=== PATIENT | male | born 1945 | race Caucasian/White ===

== ENCOUNTER 2017-05-19 20:19 | Observation (INO) | payer MEDICARE ==
[2017-05-19 21:43] VITALS: BMI 22.4
[2017-05-19 22:23] LABS: BASO % 0.2 % (0.0-2.0); EOS % 0.2 % (0.0-4.0); HEMOGLOBIN 15.3 g/dL (12.0-18.0); LYMPH % 5.7 % (20.0-40.0); MEAN CELL VOLUME 84.4 fl (80.0-94.0); MEAN CORPUSCULAR HGB CONC 33.1 g/dL (33.0-37.0); MONO # 1.2 K/uL (0.0-0.8); NEUT # 15.4 K/uL (1.8-7.0); NEUT % 86.9 % (50.0-75.0); NRBC % 0.1 % (0.0-0.0); PLATELET COUNT 232 K/uL (130-400); RBC 5.46 Mil/uL (4.40-5.90); RED CELL DISTRIBUTION WIDTH 14.7 % (11.5-14.5); WHITE BLOOD COUNT 17.8 K/uL (4.8-10.8)
[2017-05-19 22:31] LABS: ALB/GLOB RATIO 1.3 (1.0-2.1); ALBUMIN 4.3 g/dL (3.5-5.0); ALT/SGPT 42 U/L (21-72); AST/SGOT 34 U/L (17-59); BLOOD UREA NITROGEN 21 mg/dl (9-20); CALCIUM 9.6 mg/dL (8.4-10.2); GFR AFRICAN-AMERICAN > 60; GFR NON-AFRICAN AMERICAN 60
[2017-05-19 22:55] LABS: EOSINOPHIL 1 % (0-7); LYMPHOCYTE 10 % (20-50); MONOCYTE 6 % (0-10); NEUTROPHIL 83 % (42-75); PLATELET ESTIMATE NORMAL (NORMAL); TOTAL CELLS COUNTED 100
--- NOTE | 2017-05-19 22:58 | ED PDOC ---
"HPI: Abdomen Time Seen by Provider: 05/19/17 21:33 Chief Complaint (Nursing): Abdominal Pain Chief Complaint (Provider): abd pain, constipation History Per: Patient, Family (sister) History/Exam Limitations: no limitations Onset/Duration Of Symptoms: Days (1), Sudden Onset Current Symptoms Are (Timing): Still Present Location Of Pain/Discomfort: Periumbilical Quality Of Discomfort: Sharp Associated Symptoms: Nausea, Constipation. denies: Vomiting, Diarrhea, Urinary Symptoms Exacerbating Factors: None Alleviating Factors: None Last Bowel Movement: Today Additional Complaint(s): 71yo male c/o central abdominal pain and constipation which is abnormal for him , denies vomiting although notes nausea. Denies fever, urinary symptoms or weakness. No prior abd surgical history. Also notes painful hemorrhoid, no blood in stool. Past Medical History Reviewed: Historical Data, Nursing Documentation, Vital Signs Vital Signs: Last Vital Signs Temp 98.1 F 05/20/17 05:34 Pulse 94 H 05/20/17 05:34 Resp 16 05/20/17 05:34 BP 148/93 H 05/20/17 05:34 Pulse Ox 97 05/20/17 05:34 - Medical History PMH: CAD, Diabetes (preDM), HTN - Surgical History Surgical History: CABG - Family History Family History: States: Unknown Family Hx - Living Arrangements Living Arrangements: With Family (visiting from [place]) - Social History Current smoker - smoking cessation education provided: No - Home Medications Home Medications: Ambulatory Orders Medication Instructions Recorded Allopurinol [Zyloprim] 1 tab PO DAILY 05/20/17 Aspirin [Aspirin Chewable] 1 tab PO DAILY 05/20/17 Atorvastatin [Lipitor] 1 tab PO HS 05/20/17 Clopidogrel [Plavix] 1 tab PO DAILY 05/20/17 Lisinopril [Zestril] 1 tab PO DAILY 05/20/17 Metoprolol Tartrate [Lopressor] 100 mg PO BID 05/20/17 amLODIPine [Norvasc] 1 tab PO DAILY 05/20/17 - Allergies Allergies/Adverse Reactions: Allergies Allergy/AdvReac Type Severity Reaction Status Date / Time No Known Allergies Allergy Verified 05/19/17 21:43 Review of Systems Constitutional: Negative for: Weakness, Malaise ENT: Negative for: Throat Pain, Throat Swelling Cardiovascular: Negative for: Chest Pain, Palpitations Respiratory: Negative for: Cough, Shortness of Breath Gastrointestinal: Positive for: Nausea, Abdominal Pain, Constipation, Rectal Pain. Negative for: Vomiting, Diarrhea, Melena Genitourinary Male: Negative for: Dysuria, Hematuria Musculoskeletal: Negative for: Neck Pain, Shoulder Pain Skin: Negative for: Rash, Lesions Neurological: Negative for: Weakness, Numbness, Dizziness Psych: Negative for: Anxiety, Depression Physical Exam - Reviewed Nursing Documentation Reviewed: Yes Vital Signs Reviewed: Yes - Physical Exam Appears: Positive for: Well, Non-toxic, No Acute Distress Head Exam: Positive for: ATRAUMATIC, NORMAL INSPECTION, NORMOCEPHALIC Skin: Positive for: Normal Color, Warm, DRY Eye Exam: Positive for: EOMI, Normal appearance, PERRL ENT: Positive for: Normal ENT Inspection Neck: Positive for: Normal, Painless ROM Cardiovascular/Chest: Positive for: Regular Rate, Rhythm Respiratory: Positive for: CNT, Normal Breath Sounds Gastrointestinal/Abdominal: Positive for: Bowel Sounds, Soft, Tenderness, Distended. Negative for: Rebound, Hernia, Asicites Back: Positive for: Normal Inspection Extremity: Positive for: Normal ROM Neurologic/Psych: Positive for: Alert, Oriented - Laboratory Results Result Diagrams: 05/19/17 22:10 05/19/17 22:10 - ECG O2 Sat by Pulse Oximetry: 97 Medical Decision Making Medical Decision Making: workup for new onset constipation initiated Abd obstructive series, labwork ordered enema ordered but held after WBC returned elevated, will obtain CT abd pelv r/o obstruction FANG ABEBE | Final Radiology Report COMPARISON: There are no prior studies for comparison. FINDINGS: Lower thorax: Heart size is normal. There is minimal scarring at the lung bases. ABDOMEN: Liver: There is fatty infiltration of the liver. Gallbladder and bile ducts: Gallbladder is distended with a small calcified stone. Common duct is unremarkable. Pancreas: Pancreas is mildly atrophic. Spleen: unremarkable Adrenals: There is mild thickening of both adrenals. Kidneys and ureters: There is mild bilateral renal scarring. There are small low attenuation renal lesions too small to accurately characterize.There is no pelvocaliectasis or ureterectasis. Stomach and bowel: Stomach is almost empty. Rotation is normal. Small bowel is mildly distended with fluid and air. There is no obstruction. Ileocecal region is unremarkable. Appendix and terminal ileum are unremarkable.Colon is incompletely distended which limits evaluation. There is scattered diverticulosis Appendix: See stomach and bowel PELVIS: Bladder: unremarkable Reproductive: Seminal vesicles and prostate are unremarkable. ABDOMEN and PELVIS: Intraperitoneal space: There is no free air or free fluid. Bones/joints: There are postsurgical changes of median sternotomy There are degenerative changes in the osseus structures. There are bone islands in the sacrum. Soft tissues: unremarkable Vasculature: There are multiple phleboliths. There are vascular calcifications. Lymph nodes: There is no pathologic adenopathy. IMPRESSION: Fatty liver, no acute solid visceral abnormality; gallstone, no ductal dilatation; Thank you for allowing us to participate in the care of your patient. Dictated and Authenticated by: Stacey Espana MD 05/20/2017 12:55 AM Eastern Time ([place] & [place]) US RUQ FINDINGS: Liver: There is hepatopedal flow in the main portal vein. Hepatic texture is heterogeneous. Gallbladder: Gallbladder is distended. There are multiple shadowing stones. Gallbladder wall measures approximately 3 mm in width. Common bile duct: Common bile duct measures approximately 5 mm in diameter. Pancreas: Pancreas is partially obscured by bowel gas. Right kidney: Right kidney is unremarkable. Aorta: Visualized portions of the aorta and inferior vena cava are unremarkable. IMPRESSION: Gallstones and mild gallbladder wall thickening, no ductal dilatation; fatty liver Patient was not tender over the gallbladder Thank you for allowing us to participate in the care of your patient. Dictated and Authenticated by: Stacey Espana MD 05/20/2017 1:25 AM Eastern Time ([place] & [place]) Given elevated WBC, will give dose cipro and place observation to M/S for surg eval. d/w Dr Kati Perez surgery to be made aware vice president quality in ED with initial orders placed. Disposition - Clinical Impression Clinical Impression: Cholelithiases, Leukocytosis, Abdominal pain - Patient ED Disposition Is Patient to be Admitted: Yes Counseled Patient/Family Regarding: Studies Performed, Diagnosis, Need For Followup - Disposition Disposition Time: 01:40 Condition: STABLE - Pt Status Changed To: Hospital Disposition Of: Observation - POA Present On Arrival: None"
[2017-05-19] MEDS ORDERED: Iohexol 300 100 ML IJ ONE (23:02)
[2017-05-19] MEDS ORDERED: Sodium Chloride 0.9% 50 ML IV ONE (23:03)
--- NOTE | 2017-05-20 00:55 | CT ---
EXAM: CT Abdomen and Pelvis With Intravenous Contrast EXAM DATE/TIME: 05/19/2017 10:54 PM CLINICAL HISTORY: 71 years old, male; Pain; Abdominal pain; Generalized; Additional info: Abd pain constipation, elevated wbc TECHNIQUE: Axial computed tomography images of the abdomen and pelvis with intravenous contrast. All CT scans at this facility use one or more dose reduction techniques, viz.: automated exposure control; ma/kV adjustment per patient size (including targeted exams where dose is matched to indication; i.e. head); or iterative reconstruction technique. Coronal and sagittal reformatted images were created and reviewed. CONTRAST: 90 mL of [id number] administered intravenously. COMPARISON: There are no prior studies for comparison. FINDINGS: Lower thorax: Heart size is normal. There is minimal scarring at the lung bases. ABDOMEN: Liver: There is fatty infiltration of the liver. Gallbladder and bile ducts: Gallbladder is distended with a small calcified stone. Common duct is unremarkable. Pancreas: Pancreas is mildly atrophic. Spleen: unremarkable Adrenals: There is mild thickening of both adrenals. Kidneys and ureters: There is mild bilateral renal scarring. There are small low attenuation renal lesions too small to accurately characterize.There is no pelvocaliectasis or ureterectasis. Stomach and bowel: Stomach is almost empty. Rotation is normal. Small bowel is mildly distended with fluid and air. There is no obstruction. Ileocecal region is unremarkable. Appendix and terminal ileum are unremarkable.Colon is incompletely distended which limits evaluation. There is scattered diverticulosis Appendix: See stomach and bowel PELVIS: Bladder: unremarkable Reproductive: Seminal vesicles and prostate are unremarkable. ABDOMEN and PELVIS: Intraperitoneal space: There is no free air or free fluid. Bones/joints: There are postsurgical changes of median sternotomy There are degenerative changes in the osseus structures. There are bone islands in the sacrum. Soft tissues: unremarkable Vasculature: There are multiple phleboliths. There are vascular calcifications. Lymph nodes: There is no pathologic adenopathy. IMPRESSION: Fatty liver, no acute solid visceral abnormality; gallstone, no ductal dilatation;
--- NOTE | 2017-05-20 01:25 | US ---
EXAM: US Abdomen Limited, Right Upper Quadrant EXAM DATE/TIME: 05/20/2017 1:01 AM CLINICAL HISTORY: 71 years old, male; Pain; Abdominal pain; Epigastric; Additional info: Ruq distended gb TECHNIQUE: Real-time ultrasound of the right upper quadrant with image documentation. COMPARISON: CT - ABD PELVIS IV CONTRAST ONLY 2017-05-19 23:08 FINDINGS: Liver: There is hepatopedal flow in the main portal vein. Hepatic texture is heterogeneous. Gallbladder: Gallbladder is distended. There are multiple shadowing stones. Gallbladder wall measures approximately 3 mm in width. Common bile duct: Common bile duct measures approximately 5 mm in diameter. Pancreas: Pancreas is partially obscured by bowel gas. Right kidney: Right kidney is unremarkable. Aorta: Visualized portions of the aorta and inferior vena cava are unremarkable. IMPRESSION: Gallstones and mild gallbladder wall thickening, no ductal dilatation; fatty liver Patient was not tender over the gallbladder
[2017-05-20] MEDS ORDERED: Ciprofloxacin 400mg/200ml D5W 400 MG/200 ML BAG IVPB STA (02:03)
[2017-05-20] MEDS ORDERED: Sodium Chloride 0.9% 1,000 ML IV STA (02:03)
[2017-05-20] MEDS ORDERED: Ciprofloxacin 400mg/200ml D5W 400 MG/200 ML BAG IVPB ONE (02:38)
[2017-05-20 03:08] LABS: VENOUS BLOOD GAS BASE EXCESS 0.1 mmol/L (0.0-2.0); VENOUS BLOOD GAS PCO2 39 mmHg (40-60); VENOUS BLOOD GAS PO2 42 mm/Hg (30-55); VENOUS BLOOD PH 7.41 (7.32-7.43)
--- NOTE | 2017-05-20 04:18 | CP.PCM.CON ---
History of Present Illness - History of Present Illness History of Present Illness: General Surgery Consult Note for Dr. Genao Reason for Consult: abd pain, cholelithiasis, leukocytosis 71 M with PMH of HTN and CAD s/p CABG (10 years ago) presents to [facility] for complaint of abdominal pain. Patient states pain began yesterday around 6 pm. Patient reports that he has been constipated for 2 days and yesterday decided to take laxatives since he was having pain. Patient had 3-4 watery BMs after taking medications but the pain remained. Patient has had issues with constipation in the past but has never had this type of pain before. He states pain is not associated with eating. Patient rates pain as moderate. He describes pain as constant and dull ache in periumbilical region without radiation. He denies associated nausea/vomiting or fever/chills. Nothing specifically exacerbates the pain while pain medication in ED alleviates it. Admits to anal pain. Denies chest pain, SOB, palpitations, incontinence, urinary symptoms. PMH: HTN and CAD Meds: As per EMR Allergy: NKDA PSH: s/p CABG (10 years ago) FH: unknown Social: denies tobacco/illicit drug use, social EtOH (twice per month on average ) Review of Systems - Review of Systems All systems: reviewed and no additional remarkable complaints except (as per HPI ) Past Patient History - CARDIAC Hx Hypertension: Yes - SURGICAL HISTORY Hx Coronary Artery Bypass Graft: Yes Meds Allergies/Adverse Reactions: Allergies Allergy/AdvReac Type Severity Reaction Status Date / Time No Known Allergies Allergy Verified 05/19/17 21:43 - Medications Medications: Current Medications Sodium Chloride (Sodium Chloride 0.9%) 1,000 mls @ 125 mls/hr IV .Q8H STA Stop: 05/20/17 10:02 Last Admin: 05/20/17 02:50 Dose: 125 mls/hr Physical Exam - Constitutional Appears: No Acute Distress - Head Exam Head Exam: ATRAUMATIC, NORMOCEPHALIC - Eye Exam Eye Exam: EOMI, Normal appearance Pupil Exam: PERRL - ENT Exam ENT Exam: Mucous Membranes Moist - Neck Exam Neck exam: Positive for: Full Rom - Respiratory Exam Respiratory Exam: NORMAL BREATHING PATTERN - Cardiovascular Exam Cardiovascular Exam: Tachycardia - GI/Abdominal Exam GI & Abdominal Exam: Soft, Tenderness (mild, periumbilical). absent: Distended , Firm, Guarding, Rebound, Rigid Additional comments: (-) Simmons's sign - Rectal Exam Rectal Exam: Hemorrhoids (one moderately size hemorrhoid). absent: Fecal Impaction Additional comments: skin tags present - Extremities Exam Extremities exam: Positive for: normal capillary refill, pedal pulses present. Negative for: calf tenderness - Back Exam Back exam: absent: CVA tenderness (L), CVA tenderness (R) - Neurological Exam Neurological exam: Alert, CN II-XII Intact, Oriented x3 - Psychiatric Exam Psychiatric exam: Normal Affect, Normal Mood - Skin Skin Exam: Dry, Intact, Normal Color, Warm Results - Vital Signs Recent Vital Signs: Last Vital Signs Temp 98.0 F 05/19/17 21:46 Pulse 106 H 05/20/17 02:21 Resp 16 05/19/17 21:46 BP 145/99 H 05/20/17 02:21 Pulse Ox 97 05/20/17 01:55 - Labs Result Diagrams: 05/19/17 22:10 05/19/17 22:10 Labs: Laboratory Results - last 24 hr 05/19/17 05/19/17 05/20/17 22:10 22:10 02:56 WBC 17.8 H RBC 5.46 Hgb 15.3 Hct 46.1 MCV 84.4 MCH 28.0 MCHC 33.1 RDW 14.7 H Plt Count 232 MPV 8.0 Neut % (Auto) 86.9 H Lymph % (Auto) 5.7 L [place] % (Auto) 7.0 Eos % (Auto) 0.2 Baso % (Auto) 0.2 Neut # (Auto) 15.4 H Lymph # (Auto) 1.0 [place] # (Auto) 1.2 H Eos # (Auto) 0.0 Baso # (Auto) 0.0 Neutrophils % (Manual) 83 H Lymphocytes % (Manual) 10 L Monocytes % (Manual) 6 Eosinophils % (Manual) 1 Platelet Estimate Normal RBC Morphology Normal pO2 42 VBG pH 7.41 VBG pCO2 39 L VBG HCO3 24.5 VBG Total CO2 25.9 VBG O2 Sat (Calc) 85.1 H VBG Base Excess 0.1 VBG Potassium 3.9 Glucose 114 H Lactate 1.5 FiO2 21.0 Sodium 136 137.0 Potassium 4.1 Chloride 100 103.0 Carbon Dioxide 25 Anion Gap 15 BUN 21 H Creatinine 1.2 Est GFR ( Amer) > 60 Est GFR (Non-Af Amer) 60 Random Glucose 110 Calcium 9.6 Total Bilirubin 0.8 AST 34 ALT 42 Alkaline Phosphatase 78 Total Protein 7.6 Albumin 4.3 Globulin 3.3 Albumin/Globulin Ratio 1.3 Venous Blood Potassium 3.9 Assessment & Plan - Assessment and Plan (Free Text) Plan: 71 M with abd pain, cholelithiasis, leukocytosis likely secondary to acute cholecystitis -NPO -IV fluids -IV antibiotics -Analgesics/Anti-emetics PRN -Will discuss with Dr. Birgit Chaves PGY1
[2017-05-20] MEDS ORDERED: Piperacillin/Tazobact 3.375 gm Inj IVPB ONE (05:23)
[2017-05-20] MEDS: Piperacillin/Tazobact 3.375 GM in Sodium Chloride 0.9% 100 ML IVPB SCH ×4 (05:27→21:38)
[2017-05-20] MEDS: Sodium Chloride 0.9% 1,000 ML IV SCH ×3 (05:28→21:30)
[2017-05-20 05:57] LABS: URINE BILIRUBIN NEGATIVE (NEGATIVE); URINE BLOOD NEGATIVE (NEGATIVE); URINE CLARITY CLEAR (Clear); URINE COLOR YELLOW (YELLOW); URINE GLUCOSE (UA) NEG (Normal); URINE LEUKOCYTE ESTERASE NEG Leu/uL (Negative); URINE NITRATE NEGATIVE (NEGATIVE); URINE PROTEIN NEGATIVE (NEGATIVE); URINE UROBILINOGEN 0.2-1.0 mg/dL (0.2-1.0)
--- NOTE | 2017-05-20 11:27 | RAD ---
PROCEDURE: Radiographs of the chest and abdomen (obstructive series) HISTORY: Small-bowel obstruction suspected COMPARISON: May 19, 2017. CT abdomen and pelvis. TECHNIQUE: AP radiograph of the chest, with upright and supine radiographs of the abdomen. FINDINGS: CHEST: Lungs: Clear. Cardiovascular: Normal size heart. No pulmonary vascular congestion. Pleura: No pleural fluid. No pneumothorax. Other findings: None. ABDOMEN AND PELVIS: Bowel: Unremarkable bowel gas pattern. No evidence of mechanical obstruction. Free air: None. Bones: Unremarkable. Other findings: None. IMPRESSION: Unremarkable radiographs of chest and abdomen. No evidence of mechanical bowel obstruction.
--- NOTE | 2017-05-20 15:13 | NM ---
PROCEDURE: Nuclear Medicine Hepatobiliary Scan HISTORY: cholelithiasis, abd pain COMPARISON: Comparison is made with the previous CT dated 05/19/2017 and previous ultrasound dated 05/20/2017 TECHNIQUE: 5 mCi of technetium 99m Mebrofenin was administered intravenously. Planar images of the abdomen were obtained at 5 min intervals to 60 mins. Delayed images were also obtained. FINDINGS: LIVER: Timely and homogenous uptake. COMMON BILE DUCT: identified at 15 mins. GALLBLADDER: identified at 10 mins. SMALL BOWEL: Identified at 45 mins. IMPRESSION: Gallbladder visualized. No scintigraphic evidence of acute cholecystitis. Patent hepatic and common bile ducts.
--- NOTE | 2017-05-20 16:37 | CP.PCM.HP ---
History of Present Illness - History of Present Illness History of Present Illness: CC: Abdominal pain. 71 y/o M, Hx CAD, HTN, Hx CVA in 2015, Hx CABG. [facility] sudden onset of abdominal pain, day [employer] with no relief. As per PT, he c/o of abdominal pain suprapubic area, pain was dull, ache, sharp , moderate intensity 7:10 non radiated, associated to chronic constipation. non associated to food, worsening symptoms: 2 days [employer], Pt taking laxatives that release the stool, having 3-4 episodes of BMs but abdominal pain continue. Non aggravated factor. Pt denied: Fever, chills, n/v, urinary symptoms, CP, palpitations, SOB, cough, sick contact, recent travel out of [place]. Nuclear Body Scan shows: Gallbladder visualized, no evidence of acute cholecystitis. Patent hepatic and common bile duct. Abd, obstructive series: No evidence of bowel obstruction. Abd/Pelv CT: No acute finding. Present on Admission - Present on Admission Any Indicators Present on Admission: No Review of Systems - Constitutional Constitutional: Other (negative) - EENT Eyes: Other (negative) Ears: Other (negative) Nose/Mouth/Throat: Other (negative) - Cardiovascular Cardiovascular: Other (negative) - Respiratory Respiratory: Other (negative) - Gastrointestinal Gastrointestinal: Abdominal Pain, Constipation, Loose Stools - Genitourinary Genitourinary: Other (negative) - Musculoskeletal Musculoskeletal: Other (negative) - Integumentary Integumentary: Other (negative) - Neurological Neurological: Other (negative) - Psychiatric Psychiatric: Other (negative) - Endocrine Endocrine: Other (negative) - Hematologic/Lymphatic Hematologic: Other (negative) Past Patient History - Past Medical History & Family History Pertinent Family History: Unknown - Past Social History Smoking Status: Former Smoker Alcohol: Social Drugs: Denies Home Situation {Lives}: With Family - CARDIAC Hx Cardiac Disorders: Yes (htn, hyperlipidemia) - PULMONARY Hx Respiratory Disorders: No - NEUROLOGICAL Hx Neurological Disorder: Yes (cva) - HEENT Hx HEENT Problems: No - RENAL Hx Chronic Kidney Disease: No - ENDOCRINE/METABOLIC Hx Endocrine Disorders: No - HEMATOLOGICAL/ONCOLOGICAL Hx Blood Disorders: No - MUSCULOSKELETAL/RHEUMATOLOGICAL Hx Musculoskeletal Disorders: No Hx Falls: No - GASTROINTESTINAL Hx Gastrointestinal Disorders: No - GENITOURINARY/GYNECOLOGICAL Hx Genitourinary Disorders: No - PSYCHIATRIC Hx Psychophysiologic Disorder: No Hx Substance Use: No - SURGICAL HISTORY Hx Surgeries: Yes Hx Coronary Artery Bypass Graft: Yes - ANESTHESIA Hx Anesthesia: Yes Hx Anesthesia Reactions: No Meds Allergies/Adverse Reactions: Allergies Allergy/AdvReac Type Severity Reaction Status Date / Time No Known Allergies Allergy Verified 05/19/17 21:43 Physical Exam - Constitutional Appears: No Acute Distress - Head Exam Head Exam: NORMAL INSPECTION - Eye Exam Eye Exam: PERRL - ENT Exam ENT Exam: Normal Exam - Neck Exam Neck exam: Positive for: Normal Inspection - Respiratory Exam Respiratory Exam: NORMAL BREATHING PATTERN - Cardiovascular Exam Cardiovascular Exam: REGULAR RHYTHM - GI/Abdominal Exam GI & Abdominal Exam: Soft, Tenderness (mild periumbilical). absent: Distended, Guarding, Rebound - Extremities Exam Extremities exam: Positive for: normal inspection - Back Exam Back exam: NORMAL INSPECTION - Neurological Exam Neurological exam: Alert, Oriented x3 - Psychiatric Exam Psychiatric exam: Normal Mood - Skin Skin Exam: Warm Results - Vital Signs Recent Vital Signs: Last Vital Signs Temp 97.5 F L 05/20/17 16:08 Pulse 88 05/20/17 16:08 Resp 18 05/20/17 16:08 BP 155/95 H 05/20/17 16:08 Pulse Ox 97 05/20/17 16:08 reviewed Buck - Labs Result Diagrams: 05/19/17 22:10 05/19/17 22:10 Labs: Laboratory Results - last 24 hr 05/19/17 05/19/17 05/20/17 22:10 22:10 02:56 WBC 17.8 H RBC 5.46 Hgb 15.3 Hct 46.1 MCV 84.4 MCH 28.0 MCHC 33.1 RDW 14.7 H Plt Count 232 MPV 8.0 Neut % (Auto) 86.9 H Lymph % (Auto) 5.7 L [place] % (Auto) 7.0 Eos % (Auto) 0.2 Baso % (Auto) 0.2 Neut # (Auto) 15.4 H Lymph # (Auto) 1.0 [place] # (Auto) 1.2 H Eos # (Auto) 0.0 Baso # (Auto) 0.0 Neutrophils % (Manual) 83 H Lymphocytes % (Manual) 10 L Monocytes % (Manual) 6 Eosinophils % (Manual) 1 Platelet Estimate Normal RBC Morphology Normal pO2 42 VBG pH 7.41 VBG pCO2 39 L VBG HCO3 24.5 VBG Total CO2 25.9 VBG O2 Sat (Calc) 85.1 H VBG Base Excess 0.1 VBG Potassium 3.9 Glucose 114 H Lactate 1.5 FiO2 21.0 Sodium 136 137.0 Potassium 4.1 Chloride 100 103.0 Carbon Dioxide 25 Anion Gap 15 BUN 21 H Creatinine 1.2 Est GFR ( Amer) > 60 Est GFR (Non-Af Amer) 60 Random Glucose 110 Calcium 9.6 Total Bilirubin 0.8 AST 34 ALT 42 Alkaline Phosphatase 78 Total Protein 7.6 Albumin 4.3 Globulin 3.3 Albumin/Globulin Ratio 1.3 Venous Blood Potassium 3.9 Urine Color Urine Clarity Urine pH Ur Specific [place] Urine Protein Urine Glucose (UA) Urine Ketones Urine Blood Urine Nitrate Urine Bilirubin Urine Urobilinogen Ur Leukocyte Esterase Urine RBC (Auto) Urine Microscopic WBC 05/20/17 05:00 WBC RBC Hgb Hct MCV MCH MCHC RDW Plt Count MPV Neut % (Auto) Lymph % (Auto) [place] % (Auto) Eos % (Auto) Baso % (Auto) Neut # (Auto) Lymph # (Auto) [place] # (Auto) Eos # (Auto) Baso # (Auto) Neutrophils % (Manual) Lymphocytes % (Manual) Monocytes % (Manual) Eosinophils % (Manual) Platelet Estimate RBC Morphology pO2 VBG pH VBG pCO2 VBG HCO3 VBG Total CO2 VBG O2 Sat (Calc) VBG Base Excess VBG Potassium Glucose Lactate FiO2 Sodium Potassium Chloride Carbon Dioxide Anion Gap BUN Creatinine Est GFR ( Amer) Est GFR (Non-Af Amer) Random Glucose Calcium Total Bilirubin AST ALT Alkaline Phosphatase Total Protein Albumin Globulin Albumin/Globulin Ratio Venous Blood Potassium Urine Color Yellow Urine Clarity Clear Urine pH 7.0 Ur Specific [place] 1.030 Urine Protein Negative Urine Glucose (UA) Neg Urine Ketones Trace Urine Blood Negative Urine Nitrate Negative Urine Bilirubin Negative Urine Urobilinogen 0.2-1.0 Ur Leukocyte Esterase Neg Urine RBC (Auto) < 1 Urine Microscopic WBC < 1 reviewed J.P. - Impressions Impression: Abdomen.obstructive series: reviewed J.P. Nuclear Body Scan: Reviewed J. P. - Imaging and Cardiology CT scan - abdomen Status: Report reviewed by me (JPengP.) CT scan - pelvis Status: Report reviewed by me (J.P.) US - abdomen Status: Report reviewed by me (Buck) Assessment & Plan (1) Cholelithiasis without cholecystitis Status: Acute Priority: High (2) Abdominal pain Status: Acute Priority: High (3) Chronic constipation Status: Chronic Priority: Medium (4) HTN (hypertension) Status: Chronic Priority: Medium (5) Dyslipidemia Status: Chronic Priority: Medium - Assessment and Plan (Free Text) Plan: F/U Blood C-S, U C-S, continue Zosyn, Dilaudid, Protonix and rest of Tx. Surgical consult appreciated. - Date & Time Date: 05/20/17 Time: 16:50
[2017-05-20] MEDS ORDERED: Benzocaine/Menthol (Cepacol) Lozenge PO ONE (21:45)
[2017-05-20] MEDS ORDERED: ATORVASTATIN PO SCH (22:00)
[2017-05-21] MEDS: Piperacillin/Tazobact 3.375 GM in Sodium Chloride 0.9% 100 ML IVPB SCH ×2 (04:27→09:37)
[2017-05-21] MEDS: Sodium Chloride 0.9% 1,000 ML IV SCH (05:28)
[2017-05-21 06:23] LABS: BASO # 0.1 K/uL (0.0-0.2); BASO % 1.5 % (0.0-2.0); EOS # 0.6 K/uL (0.0-0.7); EOS % 8.9 % (0.0-4.0); HEMOGLOBIN 15.4 g/dL (12.0-18.0); LYMPH # 1.5 K/uL (1.0-4.3); LYMPH % 21.3 % (20.0-40.0); MEAN CORPUSCULAR HEMOGLOBIN 28.5 pg (27.0-31.0); MEAN CORPUSCULAR HGB CONC 33.6 g/dL (33.0-37.0); MEAN PLATELET VOLUME 7.7 fl (7.2-11.7); MONO # 0.6 K/uL (0.0-0.8); MONO % 8.7 % (0.0-10.0); NEUT # 4.1 K/uL (1.8-7.0); NEUT % 59.6 % (50.0-75.0); NRBC % 0.2 % (0.0-0.0); RBC 5.4 Mil/uL (4.40-5.90); RED CELL DISTRIBUTION WIDTH 14.4 % (11.5-14.5); WHITE BLOOD COUNT 6.8 K/uL (4.8-10.8)
[2017-05-21 06:36] LABS: BLOOD UREA NITROGEN 12 mg/dl (9-20); CALCIUM 8.7 mg/dL (8.4-10.2); GFR AFRICAN-AMERICAN > 60; GFR NON-AFRICAN AMERICAN 50
--- NOTE | 2017-05-21 07:33 | CP.PCM.PN ---
Subjective - Date & Time of Evaluation Date of Evaluation: 05/21/17 Time of Evaluation: 07:00 - Subjective Subjective: General Surgery Dr. Genao Pt S&E @bedside. Yesterday, pt underwent HIDA exam which was negative for acute cholecystitis. NAEO. pt has no complaints. denies F/C, N/V, abd pain. Pt admits to continued loose BM after laxative use. Tolerating regular diet. Objective - Vital Signs/Intake and Output Vital Signs (last 24 hours): Temp Pulse Resp BP Pulse Ox 97.9 F 60 18 163/84 H 97 05/21/17 00:08 05/21/17 00:08 05/21/17 00:08 05/21/17 00:08 05/21/17 00:08 - Medications Medications: Current Medications Allopurinol (Zyloprim) 300 mg PO DAILY [facility] Amlodipine Besylate (Norvasc) 5 mg PO DAILY [facility] Atorvastatin Calcium (Lipitor) 80 mg PO HS [facility] Last Admin: 05/20/17 21:37 Dose: 80 mg Hydromorphone HCl (Dilaudid) 0.5 mg IVP Q3 PRN PRN Reason: Pain, severe (8-10) Piperacillin Sod/Tazobactam (Sod 3.375 gm/ Sodium Chloride) 100 mls @ 100 mls/ hr IVPB Q6 [facility] PRN Reason: Protocol Last Admin: 05/21/17 04:27 Dose: 100 mls/hr Lisinopril (Zestril) 40 mg PO DAILY [facility] Metoprolol Tartrate (Lopressor) 100 mg PO BID [facility] Last Admin: 05/20/17 16:46 Dose: 100 mg Ondansetron HCl (Zofran Inj) 4 mg IVP Q4 PRN PRN Reason: Nausea/Vomiting Pantoprazole Sodium (Protonix Inj) 40 mg IVP DAILY [facility] Last Admin: 05/20/17 10:10 Dose: 40 mg - Labs Labs: 05/21/17 05:55 05/21/17 05:55 - Constitutional Appears: Non-toxic, No Acute Distress - Head Exam Head Exam: NORMAL INSPECTION - Eye Exam Eye Exam: Normal appearance - ENT Exam ENT Exam: Mucous Membranes Moist - Respiratory Exam Respiratory Exam: NORMAL BREATHING PATTERN. absent: Accessory Muscle Use, Respiratory Distress - GI/Abdominal Exam GI & Abdominal Exam: Soft. absent: Distended, Firm, Guarding, Tenderness, Rebound - Extremities Exam Extremities Exam: Normal Inspection - Neurological Exam Neurological Exam: Alert, Awake, Oriented x3 - Psychiatric Exam Psychiatric exam: Normal Affect, Normal Mood - Skin Skin Exam: Dry, Intact, Normal Color, Warm Assessment and Plan - Assessment and Plan (Free Text) Assessment: 71 y/o M w/ abd pain - HIDA negative for acute cholecystitis - resolved leukocytosis - cont medical management - No surgical intervention at this time - Please reconsult if needed Pt discussed w/ Dr. Birgit Bae DO PGY2
[2017-05-21 08:17] VITALS: O2SAT 98
[2017-05-21] MEDS ORDERED: LISINOPRIL PO SCH (09:00)
[2017-05-21 13:06] VITALS: BP 159/92; PULSE 60; RESP 18; TEMP 97.8
--- NOTE | 2017-05-21 18:00 | CP.PCM.PN ---
Subjective - Date & Time of Evaluation Date of Evaluation: 05/21/17 Time of Evaluation: 08:15 - Subjective Subjective: F/U Cholelithiasis. Objective - Vital Signs/Intake and Output Vital Signs (last 24 hours): Temp Pulse Resp BP Pulse Ox 97.8 F 60 18 159/92 H 98 05/21/17 13:05 05/21/17 13:05 05/21/17 13:05 05/21/17 13:05 05/21/17 13:05 - Labs Labs: 05/21/17 05:55 05/21/17 05:55 - Constitutional Appears: No Acute Distress - Head Exam Head Exam: NORMAL INSPECTION - Eye Exam Eye Exam: PERRL - ENT Exam ENT Exam: Normal Exam - Neck Exam Neck Exam: Normal Inspection - Respiratory Exam Respiratory Exam: NORMAL BREATHING PATTERN - Cardiovascular Exam Cardiovascular Exam: REGULAR RHYTHM - GI/Abdominal Exam GI & Abdominal Exam: Soft, Tenderness (mild periumbilical). absent: Guarding, Rebound - Extremities Exam Extremities Exam: Normal Inspection - Back Exam Back Exam: NORMAL INSPECTION - Neurological Exam Neurological Exam: Alert, Oriented x3 - Psychiatric Exam Psychiatric exam: Normal Mood - Skin Skin Exam: Warm Assessment and Plan (1) Cholelithiasis without cholecystitis Status: Acute (2) Abdominal pain Status: Acute (3) Chronic constipation Status: Chronic (4) HTN (hypertension) Status: Chronic (5) Dyslipidemia Status: Chronic
--- NOTE | 2017-05-22 10:35 | CP.PCM.DIS ---
Provider - Provider Date of Admission: 05/20/17 02:03 Patient was seen by me on the discharge date of 05/21/17 Attending physician: Umesh Parikh MD Diagnosis - Discharge Diagnosis (1) Cholelithiasis without cholecystitis Status: Acute Priority: High (2) Abdominal pain Status: Acute Priority: High (3) Chronic constipation Status: Chronic Priority: Medium (4) HTN (hypertension) Status: Chronic Priority: Medium (5) Dyslipidemia Status: Chronic Priority: Medium Hospital Course - Lab Results Lab Results: Micro Results 05/20/17 02:40 Blood Blood Culture - Preliminary NO GROWTH AFTER 48 HOURS 05/20/17 02:20 Blood Blood Culture - Preliminary NO GROWTH AFTER 48 HOURS 05/20/17 02:00 Urine Urine Culture - Final No Growth (<1,000 CFU/ML) Most Recent Lab Values WBC 6.8 K/uL (4.8-10.8) D 05/21/17 05:55 RBC 5.40 Mil/uL (4.40-5.90) 05/21/17 05:55 Hgb 15.4 g/dL (12.0-18.0) 05/21/17 05:55 Hct 45.9 % (35.0-51.0) 05/21/17 05:55 MCV 85.0 fl (80.0-94.0) 05/21/17 05:55 MCH 28.5 pg (27.0-31.0) 05/21/17 05:55 MCHC 33.6 g/dL (33.0-37.0) 05/21/17 05:55 RDW 14.4 % (11.5-14.5) 05/21/17 05:55 Plt Count 203 K/uL (130-400) 05/21/17 05:55 MPV 7.7 fl (7.2-11.7) 05/21/17 05:55 Neut % (Auto) 59.6 % (50.0-75.0) 05/21/17 05:55 Lymph % (Auto) 21.3 % (20.0-40.0) 05/21/17 05:55 Loup % (Auto) 8.7 % (0.0-10.0) 05/21/17 05:55 Eos % (Auto) 8.9 % (0.0-4.0) H 05/21/17 05:55 Baso % (Auto) 1.5 % (0.0-2.0) 05/21/17 05:55 Neut # (Auto) 4.1 K/uL (1.8-7.0) 05/21/17 05:55 Lymph # (Auto) 1.5 K/uL (1.0-4.3) 05/21/17 05:55 Loup # (Auto) 0.6 K/uL (0.0-0.8) 05/21/17 05:55 Eos # (Auto) 0.6 K/uL (0.0-0.7) 05/21/17 05:55 Baso # (Auto) 0.1 K/uL (0.0-0.2) 05/21/17 05:55 Neutrophils % (Manual) 83 % (42-75) H 05/19/17 22:10 Lymphocytes % (Manual) 10 % (20-50) L 05/19/17 22:10 Monocytes % (Manual) 6 % (0-10) 05/19/17 22:10 Eosinophils % (Manual) 1 % (0-7) 05/19/17 22:10 Platelet Estimate Normal (NORMAL) 05/19/17 22:10 RBC Morphology Normal (NORMAL) 05/19/17 22:10 pO2 42 mm/Hg (30-55) 05/20/17 02:56 VBG pH 7.41 (7.32-7.43) 05/20/17 02:56 VBG pCO2 39 mmHg (40-60) L 05/20/17 02:56 VBG HCO3 24.5 mmol/L 05/20/17 02:56 VBG Total CO2 25.9 mmol/L (22-28) 05/20/17 02:56 VBG O2 Sat (Calc) 85.1 % (40-65) H 05/20/17 02:56 VBG Base Excess 0.1 mmol/L (0.0-2.0) 05/20/17 02:56 VBG Potassium 3.9 mmol/L (3.6-5.2) 05/20/17 02:56 Sodium 137.0 mmol/L (132-148) 05/20/17 02:56 Chloride 103.0 mmol/L (98-107) 05/20/17 02:56 Glucose 114 mg/dL (75-110) H 05/20/17 02:56 Lactate 1.5 mmol/L (0.7-2.1) 05/20/17 02:56 FiO2 21.0 % 05/20/17 02:56 Sodium 142 mmol/l (132-148) 05/21/17 05:55 Potassium 3.8 MMOL/L (3.6-5.0) 05/21/17 05:55 Chloride 106 mmol/L (98-107) 05/21/17 05:55 Carbon Dioxide 26 mmol/L (22-30) 05/21/17 05:55 Anion Gap 14 (10-20) 05/21/17 05:55 BUN 12 mg/dl (9-20) 05/21/17 05:55 Creatinine 1.4 mg/dl (0.8-1.5) 05/21/17 05:55 Est GFR ( Amer) > 60 05/21/17 05:55 Est GFR (Non-Af Amer) 50 05/21/17 05:55 Random Glucose 95 mg/dL (75-110) 05/21/17 05:55 Calcium 8.7 mg/dL (8.4-10.2) 05/21/17 05:55 Total Bilirubin 0.8 mg/dl (0.2-1.3) 05/19/17 22:10 AST 34 U/L (17-59) 05/19/17 22:10 ALT 42 U/L (21-72) 05/19/17 22:10 Alkaline Phosphatase 78 U/L (38-126) 05/19/17 22:10 Total Protein 7.6 G/DL (6.3-8.2) 05/19/17 22:10 Albumin 4.3 g/dL (3.5-5.0) 05/19/17 22:10 Globulin 3.3 gm/dL (2.2-3.9) 05/19/17 22:10 Albumin/Globulin Ratio 1.3 (1.0-2.1) 05/19/17 22:10 Venous Blood Potassium 3.9 mmol/L (3.6-5.2) 05/20/17 02:56 Urine Color Yellow (YELLOW) 05/20/17 05:00 Urine Clarity Clear (Clear) 05/20/17 05:00 Urine pH 7.0 (5.0-8.0) 05/20/17 05:00 Ur Specific Chandler 1.030 (1.003-1.030) 05/20/17 05:00 Urine Protein Negative mg/dL (NEGATIVE) 05/20/17 05:00 Urine Glucose (UA) Neg mg/dL (Normal) 05/20/17 05:00 Urine Ketones Trace mg/dL (NEGATIVE) 05/20/17 05:00 Urine Blood Negative (NEGATIVE) 05/20/17 05:00 Urine Nitrate Negative (NEGATIVE) 05/20/17 05:00 Urine Bilirubin Negative (NEGATIVE) 05/20/17 05:00 Urine Urobilinogen 0.2-1.0 mg/dL (0.2-1.0) 05/20/17 05:00 Ur Leukocyte Esterase Neg Facundo/uL (Negative) 05/20/17 05:00 Urine RBC (Auto) < 1 /hpf (0-3) 05/20/17 05:00 Urine Microscopic WBC < 1 /hpf (0-5) 05/20/17 05:00 Discharge Exam - Head Exam Head Exam: NORMAL INSPECTION Discharge Plan - Follow Up Plan Condition: STABLE Disposition: HOME/ ROUTINE Instructions: Acute Abdominal Pain (DC), Leukocytosis (DC) Additional Instructions: follow up with your primary MD 7-10 days follow up with Dr Hackett in 1-2 weeks. Referrals: Umesh Parikh MD [Staff Provider] - Caio Genao MD [Staff Provider] -
== END 2017-05-21 16:10 | disposition home or self-care (01) ==
LOC: H.ER 20:19 → H.ERHOLD 05-20 02:03 → H.MEDSURG1 05-20 08:55
PROVIDERS: ADMIT Internal Medicine Pulmonary Disease; ATTEND Internal Medicine Pulmonary Disease
DX: K80.20 Calculus of gallbladder without cholecystitis without obstruction (principal); K76.0 Fatty (change of) liver, not elsewhere classified; Z86.73 Personal history of transient ischemic attack (TIA), and cerebral infarction without residual deficits; K59.09 Other constipation; I25.10 Atherosclerotic heart disease of native coronary artery without angina pectoris; Z95.1 Presence of aortocoronary bypass graft; E78.5 Hyperlipidemia, unspecified; I10 Essential (primary) hypertension; Z87.891 Personal history of nicotine dependence; D72.829 Elevated white blood cell count, unspecified; K64.9 Unspecified hemorrhoids; R73.03 Prediabetes
CPT/HCPCS: 36415; 74022; 74177; 76705; 78227; 80048; 80053; 81003; 82803; 85025; 87040; 87086; 99284; A9537; C9113; G0378; J0744; J2543; J7040; Q9967